=== PATIENT | male | born 1960 | race Caucasian/White ===

== ENCOUNTER 2024-08-31 01:33 | Emergency (ER) | payer MEDICAID ==
[~2024-08-31] VITALS: Ht 170.2 cm; Wt 72.7 kg
[2024-08-31 01:33] VITALS: BP 0/0; PULSE 0; RESP 0; TEMP 98.1; O2SAT 0
--- NOTE | 2024-08-31 01:53 | ED.PDOC ---
CPR-HPI HPI Comments 64-year-old male came to ER via EMS in cardiac arrest. Per EMS, they received a call for shortness of breath, saw the patient slumped on the front porch. Patient was [place] speaking, difficulty understanding with the he was saying, patient appears to be panicking, short of breath, was waving his arms all over. As patient was on the gurney and on the way to the ER, patient stared blankly and became limp and unresponsive. Patient became pulseless PEA, and CPR was initiated immediately, bagging done, chest compressions, IO at right leg and epinephrinex1 was given as patient entered the ER Chief Complaint: CPR Time Seen by MD: 01:53 Reviewed Notes: Strip Picker Notes Allergies: Coded Allergies: UNOBTAINABLE (Unverified , 08/31/24) Information Source: Emergency Med Personnel Mode of Arrival: EMS Timing: Minutes Onset: Witnessed Available Hx: Unknown Treatment: CPR, IV, Epinephrine Response: Transient return of pulse Associated signs and symptoms: Dyspnea Past Medical History PAST MEDICAL HISTORY: Unobtainable Surgical History: Unobtainable Family History Family History: Unobtainable Social History Smoker: Unobtainable Alcohol: Unobtainable Drugs: Unobtainable Lives In: Home Unable to Obtain due to: Medical Urgency Physical Exam General Appearance: Other (CPR in progress) HEENT: Other (Pupils nonreactive) Neck: NOT DONE Respiratory: Other (Patient is being bagged) Cardiovascular: Other (Pulseless) Breast Exam: Deferred Gastrointestinal: No Organomegaly, No Pulsatile Mass, Soft Genitalia: Deferred Pelvic: Deferred Rectal: Deferred Extremities: No calf tenderness, Normal capillary refill, Normal inspection, Non-tender, No pedal edema Neurologic: Other (Patient unresponsive) Cerebellar Function: Unable to Test Reflexes: NOT DONE Skin: Normal Color Lymphatic: No Adenopathy Was a procedure done? Was a procedure done?: Yes Sedation Sedation?: No Intubation Indication: Respiratory Insufficiency Prep: Preoxygenation Intubation Approach: Orotracheal Intubation size: cm (8) Informed consent obtained: No Risks/benefits/alt described: No Differential Dx CPR Differential Diagnosis: Cardiopulmonary arrest, Dysrhythmia, Myocardial Infarction, Respiratory Failure X-Ray, Labs, Meds, VS Vital Signs Date Time Temp Pulse Resp B/P (MAP) Pulse Ox O2 Delivery O2 Flow Rate FiO2 08/31/24 02:41 0 0 Ambu-Bag 0 08/31/24 01:33 Simple Mask* 6 50 08/31/24 01:33 98.1 0 0 0/0 (0) 0 98.1 08/31/24 01:33 98.1 0 0 0/0 (0) 0 Time of 1ST Reevaluation: 01:42 Reevaluation 1ST: Unchanged Patient Education/Counseling: Pt Unresponsive Family Education/Counseling: No Family Present Departure 1 Departure Time of Disposition: 03:11 (Patient presented as a cardiac arrest. ACLS per protocol. Family is out of town and vagus. I left voicemail to call us back.) Impression: Primary Impression: Cardiac arrest Disposition: 20 Condition: Other () Critical Care Note Critical Care Time?: No Heart Score Heart Score: Heart Score Response (Comments) Value History N/A 0 EKG N/A 0 Age N/A 0 Risk Factors N/A 0 Troponin N/A 0 Total 0 Stability Stability form required: No I personally scribed for KANIKA GALICIA MD ([email or web address]) on 08/31/24 at 01:53. Electronically submitted by Suraj Peraza ([employer]). I personally scribed for KANIKA GALICIA MD ([email or web address]) on 08/31/24 at 02:06. Electronically submitted by Suraj Peraza ([employer]). KANIKA GALICIA MD Aug 31, 2024 01:53
[2024-08-31] MEDS: EPINEPHrine HCL 1 MG/10 ML SYRG ONE ×2 (01:56→01:59)
--- NOTE | 2024-08-31 02:41 | RESUS ---
CODE BLUE ASSESSSMENT History of Events History of Events: Pt BIBA with manual CPR in progress. Per EMS, pt c/o of SOB. In back of ambulance, pt coded. IO to proximal R tibia established with 1 Epi given en route at arrival to ER. Initial Information Date: Aug 31, 2024 Time: : Location of Arrest: In Field Arrest Witnessed: Yes CPR started initial time: : CPR started by whom: EMS Pre-Hospital Care: ACLS Type of arrest: Cardiac, Respiratory, Adult, Witnessed Spontaneous Respirations: No Pulse Present: No Monitoring: ECG, Pulse Oximetry, Telemetry Crash Cart Opened and Supplies: Yes Airway Ventilation Breathing at Onset: Assisted Oxygen Delivery Method: Ambu-Bag Time of first Assisted Ventila: : Artificial Ventilation: Bag/Mask Intubation Time: :33 Intubation Size: 8.0 cuffed Intubated by: RT Negar Intubation Attempts: 1 Intubated orally: Yes Intubated Nasaly: No Tube secured at: 24 (cm @ lip) Cricoid pressure done: Yes CO2 indicator used: Yes Confirmation: Auscultation, Exhaled CO2 Circulation Circulation #1: Time: 01:33 Pulse Rate (adult): 0 Blood Pressure Systolic: 0 Blood Pressure Diastolic: 0 Temperature (Fahrenheit): 98.1 (F; rectal) Circulation Comment: PEA Circulation #2: Time: 01:36 Pulse Rate (adult): 0 Blood Pressure Systolic: 0 Blood Pressure Diastolic: 0 Circulation Comment: PEA Circulation #3: Time: 01:38 Pulse Rate (adult): 0 Blood Pressure Systolic: 0 Blood Pressure Diastolic: 0 Circulation Comment: PEA Circulation #4: Time: 01:40 Pulse Rate (adult): 0 Blood Pressure Systolic: 0 Blood Pressure Diastolic: 0 Circulation Comment: PEA Circulation #5: Time: 01:43 Pulse Rate (adult): 0 Blood Pressure Systolic: 0 Blood Pressure Diastolic: 0 Circulation Comment: [id number] Circulation #6: Time: 01:45 Pulse Rate (adult): 0 Blood Pressure Systolic: 0 Blood Pressure Diastolic: 0 Circulation Comment: PEA Circulation #7: Time: 01:47 Pulse Rate (adult): 0 Blood Pressure Systolic: 0 Blood Pressure Diastolic: 0 Circulation Comment: Vfib 201 Circulation #8: Time: 01:50 Pulse Rate (adult): 0 Blood Pressure Systolic: 0 Blood Pressure Diastolic: 0 Circulation Comment: Vfib 179 Circulation #9: Time: 01:52 Pulse Rate (adult): 0 Blood Pressure Systolic: 0 Blood Pressure Diastolic: 0 Circulation Comment: Vfib 172 Circulation #10: Time: 01:54 Pulse Rate (adult): 0 Blood Pressure Systolic: 0 Blood Pressure Diastolic: 0 Circulation Comment: PEA Circulation #11: Time: 01:57 Pulse Rate (adult): 0 Blood Pressure Systolic: 0 Blood Pressure Diastolic: 0 Circulation Comment: Vfib 118 Circulation #12: Time: 02:00 Pulse Rate (adult): 0 Blood Pressure Systolic: 0 Blood Pressure Diastolic: 0 Circulation Comment: PEA Circulation #13: Time: 02:02 Pulse Rate (adult): 0 Blood Pressure Systolic: 0 Blood Pressure Diastolic: 0 Circulation Comment: PEA Circulation #14: Time: 02:03 Pulse Rate (adult): 0 Blood Pressure Systolic: 0 Blood Pressure Diastolic: 0 Circulation Comment: PEA; confirmed with ultrasound by Dr Hastings; TOD Defibrillation Defbrillation #1: Time Defibrillator Applied: 01:43 EKG Rhythm: V-Fibrillation Compressions: Manual Time Defibrillator Shocked Pt.: 01:43 Defib. Joules: 120 Pulse Present: No Defbrillation #2: Time Defibrillator Applied: 01:47 EKG Rhythm: V-Fibrillation Compressions: Manual Time Defibrillator Shocked Pt.: 01:47 Defib. Joules: 150 Pulse Present: No Defbrillation #3: Time Defibrillator Applied: 01:50 EKG Rhythm: V-Fibrillation Compressions: Manual Time Defibrillator Shocked Pt.: 01:50 Defib. Joules: 200 Pulse Present: No Defbrillation #4: Time Defibrillator Applied: 01:52 EKG Rhythm: V-Fibrillation Compressions: Manual Time Defibrillator Shocked Pt.: 01:52 Defib. Joules: 200 Pulse Present: No Defbrillation #5: Time Defibrillator Applied: 01:57 EKG Rhythm: V-Fibrillation Compressions: Manual Time Defibrillator Shocked Pt.: 01:57 Defib. Joules: 200 Pulse Present: No Procedure - IV Procedure - IV #1: IV start time: 01:34 IV Side: Left IV Location: Hand IV Catheter Type: Saline Lock IV Placed: RN IV Placed by Analy Giraldo RN IV Gauge: 20 IV Line Care: Saline Flush Procedure - IV #2: IV start time: 01:38 IV Side: Left IV Location: Wrist IV Catheter Type: Saline Lock IV Placed: RN IV Placed by Analy Giraldo RN IV Gauge: 20 IV Line Care: Saline Flush Medications & Response Medications and Responses #1: Medication Time: 01:34 Route of Administration: IO Heart Rate: 0 EKG Rhythm: PEA Blood Pressure Systolic: 0 Blood Pressure Diastolic: 0 Respiratory Rate: 0 EKG Rhythm: PEA Medications and Responses #2: Medication Time: 01:36 ADULT Medications Given ADULT: D50 (amp), Calcium Chloride 10 mL Route of Administration: IO Heart Rate: 0 Blood Pressure Systolic: 0 Blood Pressure Diastolic: 0 Respiratory Rate: 0 EKG Rhythm: PEA Medications and Responses #3: Medication Time: 01:37 ADULT Medications Given ADULT: Epinephrine 1 mg Route of Administration: IO Heart Rate: 0 EKG Rhythm: PEA Blood Pressure Systolic: 0 Blood Pressure Diastolic: 0 Respiratory Rate: 0 EKG Rhythm: PEA Medications and Responses #4: Medication Time: 01:38 ADULT Medications Given ADULT: Magnesium Sulfate 2 gm Route of Administration: IV Heart Rate: 0 EKG Rhythm: PEA Blood Pressure Systolic: 0 Blood Pressure Diastolic: 0 Respiratory Rate: 0 EKG Rhythm: PEA Medications and Responses #5: Medication Time: 01:40 ADULT Medications Given ADULT: Epinephrine 1 mg, Sodium Bacarbinate 50 meq Route of Administration: IV Heart Rate: 0 EKG Rhythm: PEA Blood Pressure Systolic: 0 Blood Pressure Diastolic: 0 Respiratory Rate: 0 EKG Rhythm: PEA Medications and Responses #6: Medication Time: 01:43 ADULT Medications Given ADULT: Epinephrine 1 mg Route of Administration: IV Heart Rate: 0 EKG Rhythm: V-Fibrillation Blood Pressure Systolic: 0 Blood Pressure Diastolic: 0 Respiratory Rate: 0 EKG Rhythm: PEA Medications and Responses #7: Medication Time: 01:48 ADULT Medications Given ADULT: Epinephrine 1 mg Route of Administration: IV Heart Rate: 0 Blood Pressure Systolic: 0 Blood Pressure Diastolic: 0 Respiratory Rate: 0 EKG Rhythm: V-Fibrillation Medications and Responses #8: Medication Time: 01:51 ADULT Medications Given ADULT: Epinephrine 0.5 mg, Epinephrine 1 mg Route of Administration: IV Heart Rate: 0 Blood Pressure Systolic: 0 Blood Pressure Diastolic: 0 Respiratory Rate: 0 EKG Rhythm: V-Fibrillation Medications and Responses #9: Medication Time: 01:55 Route of Administration: IV Heart Rate: 0 EKG Rhythm: PEA Blood Pressure Systolic: 0 Blood Pressure Diastolic: 0 Respiratory Rate: 0 Medications and Responses #10: Medication Time: 01:56 ADULT Medications Given ADULT: Amiodarone 300 mg Route of Administration: IV Heart Rate: 0 Blood Pressure Systolic: 0 Blood Pressure Diastolic: 0 Respiratory Rate: 0 EKG Rhythm: V-Fibrillation Medications and Responses #11: Medication Time: 01:59 Heart Rate: 0 EKG Rhythm: PEA Blood Pressure Systolic: 0 Blood Pressure Diastolic: 0 Respiratory Rate: 0 EKG Rhythm: PEA Medications and Responses #12: Medication Time: 02:02 Heart Rate: 0 EKG Rhythm: PEA Blood Pressure Systolic: 0 Blood Pressure Diastolic: 0 Respiratory Rate: 0 EKG Rhythm: PEA Nurses Notes Colin Coma Scale Eye Opening: None (1) Colin Coma Scale Verbal: None (1) Colin Coma Scale Motor: None (1) Glascow Total: 3 Pupil Reaction: Non Reactive Bedside Blood Glucose: 74 Nurses Notes - Comment: 0139 : 14g needle placed to R chest wall by Dr Hastings 0141 : 14g needle placed to L chest wall by Dr Hastings Time Code Ended Time Code Ended: 02:03 Outcome of code: Unsuccessful Patient pronounced by: Dr Hastings Time patient pronounced: 02:03 Code Team Present: Dr Hastings - MIGUEL ANGEL DANGELO; Ewelina Odom, RN - Photo Retoucher; Young Burgos RN - organic search lead; Analy Giraldo RN; Gisselle Odonnell, RN; Vivian Jones, RN; Taco Ross, RT; Varinder Jones, ERT; Cece P, ERT; Jayce Odonnell, ERT; Manuel Galeana, ERT; Rodger Hull, ERT; Sindy Hinojosa, Ewelina Hernández Aug 31, 2024 02:41
== END 2024-08-31 02:03 ==
LOC: ER 01:33 → EDBD 01:33 → ER 02:03
DX: I46.9 Cardiac arrest, cause unspecified (principal)
CPT/HCPCS: 31500; 92950; 99285; J0171